=== PATIENT | female | born 1955 | race Caucasian/White ===

== ENCOUNTER 2016-10-28 14:26 | Outpatient (CLI) | payer OTHER ==
--- NOTE | 2016-10-31 06:42 | DIAGNOSTIC IMAGING REPORT ---
PROCEDURE: MG BILATERAL SCREENING W/CAD INDICATION: Screening. Family history breast carcinoma of the grandmother, sisters). TECHNIQUE: Bilateral CC and MLO digital views. COMPARISON: Compared to 10/22/2015, 10/16/2014, and 06/17/2012. FINDINGS: Computer-aided detection applied. Mildly dense. No change. IMPRESSION: 1. Negative mammogram. RESULT CODE: 1- Negative. A. A negative report should not delay biopsy if a dominant or clinically suspicious mass is present. 10-15% of cancers are not identified by x-ray. B. A negative report may reinforce clinical impression. C. Adenosis and dense breasts may obscure an underlying neoplasm. D. False positive reports average 6-10%. E.. A yearly screening mammogram is recommended. A reminder letter will be scheduled.
== END 2016-10-28 23:00 ==
LOC: MAM SRH 14:26
DX: Z12.31 Encounter for screening mammogram for malignant neoplasm of breast (principal)

== ENCOUNTER 2017-03-06 13:38 | Outpatient (CLI) | payer OTHER ==
--- NOTE | 2017-03-06 14:34 | DIAGNOSTIC IMAGING REPORT ---
PROCEDURE: DEXA BONE DENSITY STUDY CLINICAL INDICATION: SCREENING COMPARISON: None. FINDINGS: LUMBAR SPINE: Bone mineral density 0.973 g/cm2, T score -0.7 normal LEFT HIP: Bone mineral density 0.841 g/cm2, T score -0.8 normal LEFT FEMORAL NECK: Bone mineral density 0.717 g/cm2, T score -1.2 osteopenia FRACTURE RISK CALCULATION ( when applicable): 10-year fracture risk of a major osteoporotic fracture 7.8% and of a hip fracture 0.6% (T score greater or equal to -1.0 to: NORMAL) (T score from -1.1 to -2.4: OSTEOPENIA) (T score ess than or equal to -2.5: OSTEOPOROSIS) IMPRESSION: 1. Osteopenia femoral neck, 10-year of major fracture risk of 7.8% and a hip fracture risk of 0.6%
== END 2017-03-06 23:00 ==
LOC: XR SRH 13:38
DX: M85.88 Other specified disorders of bone density and structure, other site (principal)